=== PATIENT | female | born 1940 | race Caucasian/White ===

== ENCOUNTER → 2021-04-17 | Outpatient (CLI) | payer MEDICARE ==
[2021-04-17 15:45] LABS: CALCIUM 8.7 mg/dL (8.5-10.1); GFR 53.2; POTASSIUM 4.9 mmol/L (3.5-5.1)
== END ==
LOC: LAB 15:03
DX: Z79.01 Long term (current) use of anticoagulants (principal)
CPT/HCPCS: 36415; 80048

== ENCOUNTER → 2021-08-13 | Outpatient (CLI) | payer MEDICARE ==
--- NOTE | 2021-08-14 08:31 | RAD ---
EXAM: Bilateral digital screening mammogram. HISTORY: 81-year-old female presents for screening mammography. TECHNIQUE: Full-field digital craniocaudal and mediolateral oblique images of both breasts are obtain ed for evaluation. Computer aided detection was applied. COMPARISON: 01/03/2019, 12/19/2017 and 12/14/2016 BREAST PARENCHYMAL DENSITY: Level C - Heterogeneously dense. FINDINGS: There is no new suspicious mass, microcalcification or region of architectural distortion. There is a stable asymmetry with clustered benign calcifications within the posterior 3:00 position o f the right breast. There is also a stable cluster of benign calcifications within the 2:30 position of the left breast at mid to posterior depth. There is a biopsy clip within the anterior 9:00 positio n of the right breast and posterior 2:30 position of the left breast. There are a few scattered benig n calcifications. There are stable areas of benign asymmetry within both breasts. IMPRESSION: BI-RADS Category 2: Benign finding(s). RECOMMENDATION: Annual mammography is recommended. If your mammogram demonstrates that you have dense breast tissue, which could hide abnormalities, and if you have other risk factors for breast cancer that have been identified, you might benefit from s upplemental screening tests that may be suggested by your ordering physician. Dense breast tissue, i n and of itself, is a relatively common condition. This information is not provided to cause undue c oncern, but rather to raise your awareness and to promote discussion with your physician regarding th e presence of other risk factors, in addition to dense breast tissue. A report of your mammography re sults will be sent to you and your physician. You should contact your physician if you have any ques tions or concerns regarding this report. Mammography is a sensitive method for finding small breast cancers, but it does not detect them all a nd is not a substitute for careful clinical examination. A negative mammogram does not negate a clin ically suspicious finding and should not result in delay in biopsying a clinically suspicious abnorma lity. PQRS compliance statement - Patient information was entered into a reminder system with a target due date for the next mammogram. "Our facility is accredited by the [employer] Mammography [employer]." Electronically signed by: Kaleigh Carpio MD (08/14/2021 8:28 AM) [id number]
== END ==
LOC: MAMMO 11:10
PROVIDERS: ATTEND Family Medicine
DX: Z12.31 Encounter for screening mammogram for malignant neoplasm of breast (principal)
CPT/HCPCS: 77067

== ENCOUNTER 2022-03-01 17:16 | Emergency (ER) | payer MEDICARE ==
[~2022-03-01] VITALS: Ht 165.1 cm; Wt 71.8 kg
[2022-03-01] MEDS ORDERED: dilTIAZem 25 MG/5 ML VIAL IVP ONE (17:30)
[2022-03-01] MEDS ORDERED: IV NORMAL SALINE 1,000ML 1,000 ML IV SCH (17:30)
--- NOTE | 2022-03-01 17:56 | PHYS DOC ---
General Adult EDM: Chief Complaint: RAPID HEART RATE HPI: HPI: Patient is an 81-year-old female who presents to the emergency department for A. fib with RVR sent in by her primary care provider Dr. Jarvis. Patient was being seen in his office today for shingles to her left forehead. She reports that she did obtain a prescription for an antiviral. He checked her vital signs and noted that she had a heart rate of 160 and sent to the emergency department. Patient states that she was unaware that her heart rate was at rapid. She denies any symptoms of chest pain, palpitations, shortness of breath, nausea, vomiting, dizziness. She is a history of hypothyroidism, diabetes and A. fib. She is on Eliquis and metoprolol. She reports that she has not missed any medications. (CAT GLEASON APRN) Review of Systems: Review of Systems: Respiratory: See HPI Cardiovascular: See HPI GI: See HPI Neurologic: See HPI (CAT GLEASON APRN) Current Medications: Current Meds: Current Medications Medications (Trade) Dose Ordered Sig/Kay Start Time Stop Time Status Last Admin Dose Admin Diltiazem HCl (Cardizem Iv Push) 20 mg 1X ONCE 03/01/22 17:30 03/01/22 17:37 DC 03/01/22 17:40 20 MG Sodium Chloride 1,000 ml @ 1,000 mls/hr Q1H 03/01/22 17:30 03/01/22 18:29 03/01/22 17:36 1,000 MLS/HR (CAT GLEASON APRN) Allergies: Allergies: Allergies Coded Allergies Type Severity Reaction Last Updated Verified No Known Drug Allergies 03/01/22 No (CAT GLEASON APRN) Physical Exam: PE: Constitutional: Well developed, well nourished, no acute distress, non-toxic appearance. [] HENT: Normocephalic, atraumatic, bilateral external ears normal, oropharynx moist, no oral exudates, nose normal. [] Eyes: PERRL, EOMI, conjunctiva normal, no discharge. [] Neck: Normal range of motion, no stridor Cardiovascular:Heart rate regular rhythm, no murmur [] Lungs & Thorax: Bilateral breath sounds clear to auscultation [] Abdomen: Bowel sounds normal, soft, no tenderness, no masses, no pulsatile masses. [] Skin: Warm, dry, no erythema, no rash. [] Back: Normal range of motion Extremities: No tenderness, no cyanosis, no clubbing, ROM intact, no edema. [] Neurologic: Alert and oriented X 3, normal motor function, normal sensory function, no focal deficits noted. [] Psychologic: Affect normal, judgement normal, mood normal. [] (CAT GLEASON APRN) Current Patient Data: Labs: Laboratory Tests Test 03/01/22 17:40 White Blood Count 6.6 x10^3/uL Red Blood Count 4.22 x10^6/uL Hemoglobin 12.4 g/dL Hematocrit 38.0 % Mean Corpuscular Volume 90 fL Mean Corpuscular Hemoglobin 29 pg Mean Corpuscular Hemoglobin Concent 33 g/dL Red Cell Distribution Width 12.6 % Platelet Count 212 x10^3/uL Neutrophils (%) (Auto) 70 % Lymphocytes (%) (Auto) 20 % Monocytes (%) (Auto) 7 % Eosinophils (%) (Auto) 2 % Basophils (%) (Auto) 1 % Neutrophils # (Auto) 4.7 x10^3uL Lymphocytes # (Auto) 1.3 x10^3/uL Monocytes # (Auto) 0.5 x10^3/uL Eosinophils # (Auto) 0.1 x10^3/uL Basophils # (Auto) 0.0 x10^3/uL Sodium Level 140 mmol/L Potassium Level 4.0 mmol/L Chloride Level 101 mmol/L Carbon Dioxide Level 29 mmol/L Anion Gap 10 Blood Urea Nitrogen 17 mg/dL Creatinine 0.9 mg/dL Estimated GFR (Cockcroft-Gault) 59.9 BUN/Creatinine Ratio 19 Glucose Level 239 mg/dL Calcium Level 9.0 mg/dL Total Bilirubin 0.5 mg/dL Aspartate Amino Transf (AST/SGOT) 17 U/L Alanine Aminotransferase (ALT/SGPT) 29 U/L Alkaline Phosphatase 51 U/L Troponin I High Sensitivity 11 ng/L Total Protein 7.3 g/dL Albumin 3.9 g/dL Albumin/Globulin Ratio 1.1 Current Medications Medications (Trade) Dose Ordered Sig/Kay Route PRN Reason Start Time Stop Time Status Last Admin Dose Admin Diltiazem HCl (Cardizem Iv Push) 20 mg 1X ONCE IVP 03/01/22 17:30 03/01/22 17:37 DC 03/01/22 17:40 Sodium Chloride 1,000 ml @ 1,000 mls/hr Q1H IV 03/01/22 17:30 03/01/22 18:29 DC 03/01/22 17:36 Metoprolol Succinate (Toprol Xl) 25 mg 1X ONCE PO 03/01/22 18:30 03/01/22 18:48 DC 03/01/22 18:30 Diltiazem HCl 125 mg/Sodium Chloride 125 ml @ 5 mls/hr 1X ONCE IV 03/01/22 19:45 03/02/22 20:44 UNV Vital Signs: Vital Signs Date Time Temp Pulse Resp B/P (MAP) Pulse Ox O2 Delivery O2 Flow Rate FiO2 03/01/22 17:40 160 122/76 (CAT GLEASON APRN) EKG: EKG: [] EKG performed by ER staff at 1724 shows A. fib with a rate of 160. No STEMI read by Dr. Estrella at 1728 (CAT GLEASON APRN) Radiology/Procedures: Radiology/Procedures: []PROCEDURE: PORTABLE CHEST 1V XR CHEST 1V INDICATION: afib rvr, shingles . COMPARISON STUDY: None. FINDINGS: Lungs: Normal lung volume. No pulmonary mass or consolidation. The tracheobronchial tree and hilar structures are normal. Pleura: No pleural effusion or pneumothorax. Heart and Mediastinum: The cardiomediastinal silhouette is normal. The great vessels of the thorax are normal. Bones and Soft Tissues: The bones and soft tissues are within normal limits. IMPRESSION: No acute cardiopulmonary process. Electronically signed by: Grey Acharya MD (03/01/2022 6:21 PM) [facility] DICTATED AND SIGNED BY: GREY ACHRAYA MD DATE: 03/01/221820 CC: SIMON JARVIS MD; CAT GLEASON APRN ~ (CAT GLEASON APRN) Heart Score: C/O Chest Pain: No Risk Factors: Risk Factors: DM, Current or recent (<one month) smoker, HTN, HLP, family history of CAD, obesity. Risk Scores: Score 0 - 3: 2.5% MACE over next 6 weeks - Discharge Home Score 4 - 6: 20.3% MACE over next 6 weeks - Admit for Clinical Observation Score 7 - 10: 72.7% MACE over next 6 weeks - Early Invasive Strategies (CAT GLEASON APRN) Course & Med Decision Making: Course & Med Decision Making Pertinent Labs and Imaging studies reviewed. (See chart for details) [] Patient presents to the emergency department with A. fib with RVR. Patient's heart rate in the emergency department was 160. Work-up in the ER consisted of blood work, EKG and chest x-ray. Patient will be treated with 20 mg of Cardizem. Following treatment in the emergency department with Cardizem, patient's heart rate has improved 103 bpm. Patient's heart rate increased to 110 bpm. Patient was given her home dose of metoprolol she does take that every evening at 1999. Following treatment with metoprolol, patient's heart rate r emained elevated at a rate of 120 to 130 bpm. Patient's lab work was unremarkable, she had negative troponin, chest x-ray did not show an acute findings. Patient will need to be placed on a Cardizem drip. Patient will need to be transferred to [facility] for this level of care. Family reports that they would like patient to be transferred to [facility] or [facility] but those facilities have no med telemetry beds at this facility's. I discussed patient's case with Dr. Montesinos who agreed to meet the patient under his services for A. fib with RVR. I notified patient of her results and care plan and she is agreeable to transfer.1950 (CAT GLEASON APRN) Dragon Disclaimer: Dragsheila Disclaimer: This electronic medical record was generated, in whole or in part, using a voice recognition dictation system. (CAT GLEASON APRN) Attending Co-Sign The patient was seen and interviewed as well as examined at the bedside. The chart was reviewed. The case was discussed. Agree with the plan of care. (DIA BARRETO DO) Departure Departure: Impression: Primary Impression: Atrial fibrillation with RVR Disposition: 02 SHORT TERM HOSPITAL Condition: STABLE Referrals: SIMON JARVIS MD (PCP) CAT GLEASON APRN Mar 01, 2022 17:56 DIA BARRETO DO Mar 03, 2022 05:52
[2022-03-01 18:03] LABS: BASO % 1 % (0-3); EOS # 0.1 x10^3/uL (0.0-0.7); EOS % 2 % (0-3); HEMOGLOBIN 12.4 g/dL (12.0-15.5); LYMPH # 1.3 x10^3/uL (1.0-4.8); LYMPH % 20 % (24-48); MEAN CORPUSCULAR HEMOGLOBIN 29 pg (25-35); MEAN CORPUSCULAR HGB CONC 33 g/dL (31-37); MEAN CORPUSCULAR VOLUME 90 fL (79-100); MONO # 0.5 x10^3/uL (0.0-1.1); MONO % 7 % (0-9); NEUT # 4.7 x10^3uL (1.8-7.7); NEUT % 70 % (31-73); PLATELET COUNT 212 x10^3/uL (140-400); RED BLOOD COUNT 4.22 x10^6/uL (3.50-5.40); RED CELL DISTRIBUTION WIDTH 12.6 % (11.5-14.5); WHITE BLOOD COUNT 6.6 x10^3/uL (4.0-11.0)
[2022-03-01 18:04] LABS: CREATININE 0.9 mg/dL (0.6-1.0); GFR 59.9
[2022-03-01 18:09] LABS: ALBUMIN 3.9 g/dL (3.4-5.0); ALBUMIN/GLOBULIN RATIO 1.1 (1.0-1.7); TOTAL BILIRUBIN 0.5 mg/dL (0.2-1.0); TOTAL PROTEIN 7.3 g/dL (6.4-8.2)
--- NOTE | 2022-03-01 18:23 | RAD ---
XR CHEST 1V INDICATION: afib rvr, shingles . COMPARISON STUDY: None. FINDINGS: Lungs: Normal lung volume. No pulmonary mass or consolidation. The tracheobronchial tree and hilar st ructures are normal. Pleura: No pleural effusion or pneumothorax. Heart and Mediastinum: The cardiomediastinal silhouette is normal. The great vessels of the thorax ar e normal. Bones and Soft Tissues: The bones and soft tissues are within normal limits. IMPRESSION: No acute cardiopulmonary process. Electronically signed by: Frank Acharya MD (03/01/2022 6:21 PM) [facility]
[2022-03-01] MEDS ORDERED: METOPROLOL SUCC 24HR ER 25 MG TAB.ER.24H. PO ONE (18:30)
[2022-03-01] MEDS ORDERED: dilTIAZem VIAL 125 MG in IV NORMAL SALINE 100ML 100 ML IV ONE (19:45)
--- NOTE | 2022-03-01 20:56 | EKG ---
[address] [address] Test Date: 2022-03-01 Test Time: 18:05:32 Pat Name: CARLIN BURLESON Department: Room: Gender: F Account Solutions Analyst: : 1940 Requested By: CAT GLEASON Order Number: [id number] Reading MD: Measurements Intervals [place] Rate: 102 P: [place]: QRS: 64 QRSD: 72 T: -83 QT: 276 QTc: 363 Interpretive Statements IRREGULAR RHYTHM, NO P-WAVE FOUND ST & T ABNORMALITY, CONSIDER ANTEROLATERAL ISCHEMIA OR LEFT VENTRICULAR STRAIN INFEROLATERAL ISCHEMIA OR LEFT VENTRICULAR STRAIN ABNORMAL ECG RI6.02 No previous ECG available for comparison
--- NOTE | 2022-03-01 20:56 | EKG ---
[address] [address] Test Date: 2022-03-01 Test Time: 17:24:34 Pat Name: CARLIN BURLESON Department: Room: Gender: F Compliance Auditor: ELLYN : 1940 Requested By: CAT GLEASON Order Number: [id number] Reading MD: Measurements Intervals [place] Rate: 160 P: [place]: QRS: 70 QRSD: 74 T: 244 QT: 242 QTc: 397 Interpretive Statements IRREGULAR RHYTHM, NO P-WAVE FOUND ST & T ABNORMALITY, CONSIDER ANTEROLATERAL ISCHEMIA OR LEFT VENTRICULAR STRAIN INFEROLATERAL ISCHEMIA OR LEFT VENTRICULAR STRAIN ABNORMAL ECG RI6.02 No previous ECG available for comparison
[2022-03-01 21:30] VITALS: BP 158/84
[2022-03-01 22:06] LABS: AMPHETAMINE/METHAMPHETAMINE NEG (NEG); BARBITURATES NEG (NEG); BENZODIAZEPINES NEG (NEG); CANNABINOIDS NEG (NEG); COCAINE NEG (NEG); METHADONE NEG (NEG); OPIATES NEG (NEG); PHENCYCLIDINE NEG (NEG)
[2022-03-01 22:12] LABS: BACTERIA,URINE MANY /HPF (0-FEW); CLARITY,URINE CLEAR; COLOR,URINE YELLOW; GLUCOSE,URINE 500 mg/dL (NEG); NITRITE,URINE POS (NEG); RBC,URINE 0 /HPF (0-2); SQUAMOUS EPITHELIAL CELL,UR FEW /LPF; UROBILINOGEN,URINE 0.2 mg/dL (0.2 mg/dL)
== END 2022-03-01 21:48 | disposition short-term general hospital (02) ==
LOC: ER 17:16
DX: I48.20 Chronic atrial fibrillation, unspecified (principal); E03.9 Hypothyroidism, unspecified; E11.9 Type 2 diabetes mellitus without complications; Z79.01 Long term (current) use of anticoagulants
CPT/HCPCS: 36415; 71045; 80053; 80307; 81001; 84484; 85025; 87077; 87086; 87186; 93005; 96361; 96365; 96375; 99285; J3490; J7030